=== PATIENT | female | born 1970 | race American Indian/Alaskan Native ===

== ENCOUNTER 2019-10-05 19:46 | Emergency (ER) | payer OTHER ==
[2019-10-05 20:14] VITALS: BP 153/107
--- NOTE | 2019-10-05 21:04 | Emergency Department Report ---
ED Chest Pain HPI - General Chief Complaint: Chest Pain Stated Complaint: SOB/CHEST PAIN/COUGH Time Seen by Provider: 10/05/19 20:53 Source: patient Mode of arrival: Ambulatory Limitations: No Limitations - History of Present Illness Initial Comments: Patient is 49 years old female with history of hypertension and diabetes. Patient presented to the ER complaining of right sided chest pain just above her right breast for the last 2 days. Patient describes the pain is sharp with no radiation. She stated that pain increases with coughing and changing position. Patient denied any shortness of breath. Patient stated that she had productive cough with greenish sputum. Patient is also complaining of sinus pain and pressure with congestion also. Patient denied any fever or chills. MD Complaint: chest pain - Related Data Previous Rx's Medication Instructions Recorded Last Taken Type AtorvaSTATin [Lipitor] 20 mg PO QDAY #30 tablet 01/13/18 Unknown Rx Glimepiride [Amaryl] 4 mg PO QDAY #60 tablet 01/13/18 Unknown Rx Ibuprofen 600 mg PO TID #21 tablet 01/13/18 Unknown Rx Losartan [Cozaar] 100 mg PO QDAY #30 tablet 01/13/18 Unknown Rx Sitagliptin Phos/Metformin HCl 1 tab PO QDAY #60 tbmp.24hr 01/13/18 Unknown Rx [Janumet XR 100-1,000 mg] carvediloL [Coreg] 3.125 mg PO BID #60 tablet 01/13/18 Unknown Rx hydroCHLOROthiazide [HCTZ] 12.5 mg PO QDAY #30 capsule 01/13/18 Unknown Rx Ketorolac [Toradol] 10 mg PO Q6H PRN #15 tablet 03/15/19 Unknown Rx Ketorolac [Toradol] 10 mg PO Q6H PRN #20 tablet 03/15/19 Unknown Rx methOCARBAMOL [Robaxin TAB] 750 mg PO Q8H PRN #14 tablet 03/15/19 Unknown Rx methOCARBAMOL [Robaxin TAB] 750 mg PO Q8H PRN #20 tablet 03/15/19 Unknown Rx Allergies Allergy/AdvReac Type Severity Reaction Status Date / Time lisinopril Allergy Angioedema Verified 01/11/18 14:34 Heart Score - HEART Score History: Slightly suspicious EKG: Normal Age: 45-65 Risk factors: 1-2 risk factors Troponin: < normal limit HEART Score: 2 - Critical Actions Critical Actions: 0-3 pts:0.9-1.7%risk of adverse cardiac event.Candidate for discharge ED Review of Systems ROS: Stated complaint: SOB/CHEST PAIN/COUGH Other details as noted in HPI Comment: All other systems reviewed and negative Constitutional: denies: chills, fever Respiratory: cough. denies: orthopnea, shortness of breath, SOB with exertion, SOB at rest, wheezing Cardiovascular: chest pain. denies: palpitations, dyspnea on exertion Gastrointestinal: denies: abdominal pain, nausea, vomiting, diarrhea, constipation, hematemesis, melena Musculoskeletal: denies: back pain Neurological: denies: headache, weakness, numbness, paresthesias, confusion ED Past Medical Hx - Past Medical History Previous Medical History?: Yes Hx Hypertension: Yes Hx Congestive Heart Failure: No Hx Diabetes: Yes Hx Kidney Stones: Yes Hx Asthma: No Hx COPD: No Hx HIV: No Additional medical history: hypelipidemia, Morbid Obesity - Surgical History Past Surgical History?: Yes Additional Surgical History: lithotripsy, ablation - Social History Smoking Status: Current Every Day Smoker Substance Use Type: None - Medications Home Medications: Home Medications Medication Instructions Recorded Confirmed Last Taken Type AtorvaSTATin [Lipitor] 20 mg PO QDAY #30 tablet 01/13/18 Unknown Rx Glimepiride [Amaryl] 4 mg PO QDAY #60 tablet 01/13/18 Unknown Rx Ibuprofen 600 mg PO TID #21 tablet 01/13/18 Unknown Rx Losartan [Cozaar] 100 mg PO QDAY #30 tablet 01/13/18 Unknown Rx Sitagliptin Phos/Metformin HCl 1 tab PO QDAY #60 tbmp.24hr 01/13/18 Unknown Rx [Janumet XR 100-1,000 mg] carvediloL [Coreg] 3.125 mg PO BID #60 tablet 01/13/18 Unknown Rx hydroCHLOROthiazide [HCTZ] 12.5 mg PO QDAY #30 capsule 01/13/18 Unknown Rx Ketorolac [Toradol] 10 mg PO Q6H PRN #15 tablet 03/15/19 Unknown Rx Ketorolac [Toradol] 10 mg PO Q6H PRN #20 tablet 03/15/19 Unknown Rx methOCARBAMOL [Robaxin TAB] 750 mg PO Q8H PRN #14 tablet 03/15/19 Unknown Rx methOCARBAMOL [Robaxin TAB] 750 mg PO Q8H PRN #20 tablet 03/15/19 Unknown Rx ED Physical Exam - General Limitations: No Limitations General appearance: alert, in no apparent distress - Head Head exam: Present: atraumatic, normocephalic, normal inspection - Eye Eye exam: Present: normal appearance, PERRL - ENT ENT exam: Present: normal exam, normal orophraynx, mucous membranes moist - Neck Neck exam: Present: normal inspection, full ROM. Absent: tenderness, meningismus, lymphadenopathy, thyromegaly - Respiratory Respiratory exam: Present: normal lung sounds bilaterally, chest wall tenderness. Absent: respiratory distress, wheezes, rales, rhonchi, accessory muscle use, decreased breath sounds, prolonged expiratory - Cardiovascular Cardiovascular Exam: Present: regular rate, normal rhythm, normal heart sounds - GI/Abdominal GI/Abdominal exam: Present: soft, normal bowel sounds. Absent: distended, tenderness, guarding, rebound, rigid, organomegaly, mass, bruit, pulsatile mass, hernia - Extremities Exam Extremities exam: Present: normal inspection, full ROM, normal capillary refill. Absent: pedal edema, calf tenderness - Back Exam Back exam: Present: normal inspection, full ROM. Absent: CVA tenderness (R), CVA tenderness (L), muscle spasm, paraspinal tenderness, vertebral tenderness - Neurological Exam Neurological exam: Present: alert, oriented X3, CN II-XII intact, normal gait, reflexes normal - Psychiatric Psychiatric exam: Present: normal mood - Skin Skin exam: Present: warm, intact, normal color ED Course Vital Signs 10/05/19 19:54 Temperature 99.0 F Pulse Rate 117 H Respiratory 16 Rate Blood Pressure 153/107 O2 Sat by Pulse 99 Oximetry FOZIA score - Fozia Score Age > 65: (0) No Aspirin use within the Past 7 Days: (0) No 3 or more CAD Risk Factors: (1) Yes 2 or more Angina events in past 24 hrs: (1) Yes Known CAD with more than 50% Stenosis: (0) No Elevated Cardiac Markers: (0) No ST Deviation Greater than 0.5mm: (0) No FOZIA Score: 2 ED Medical Decision Making - Lab Data Result diagrams: 10/05/19 21:41 10/05/19 21:41 - EKG Data -: EKG Interpreted by [place] EKG shows normal: sinus rhythm Rate: tachycardia - EKG Data Interpretation: no acute changes - Radiology Data Radiology results: report reviewed - Medical Decision Making Patient is 49 years old female with history of hypertension and diabetes. Patient presented to the ER complaining of right sided chest pain just above her right breast for the last 2 days. Patient describes the pain is sharp with no radiation. She stated that pain increases with coughing and changing position. Patient denied any shortness of breath. Patient stated that she had productive cough with greenish sputum. Patient is also complaining of sinus pain and pressure with congestion also. Patient denied any fever or chills. Patient labs reviewed and is unremarkable including a negative d-dimer. Chest x-ray is unremarkable. Patient's symptoms is consistent with costochondritis, patient with significant tenderness to the right chest. Patient given Toradol 60 IM and given a prescription for Naprosyn and advised to follow-up with her primary care physician in the next 2-3 days and to return to ER if symptoms are not improved. Critical care attestation.: If time is entered above; I have spent that time in minutes in the direct care of this critically ill patient, excluding procedure time. ED Disposition Clinical Impression: Chest pain, Costochondritis, acute, Acute bronchitis Disposition: - TO HOME OR SELFCARE Is pt being admited?: No Condition: Stable Instructions: Chest Pain (ED), Costochondritis (ED), Acute Bronchitis (ED) Referrals: JULIANNE MONREAL MD [Primary Care Provider] - 3-5 Days
[2019-10-05 22:15] LABS: Hematocrit 41.4 % (30.3-42.9); Hemoglobin 13.8 gm/dl (10.1-14.3); Mean Corpuscular HGB Conc 33 % (30-34); Mean Corpuscular Volume 86 fl (79-97); Platelet Count 260 K/mm3 (140-440); Red Blood Count 4.84 M/mm3 (3.65-5.03); Red Cell Distribution Width 13.7 % (13.2-15.2)
[2019-10-05 22:17] LABS: Alanine Aminotransferase 42 units/L (7-56); BUN/Creatinine Ratio 18; Blood Urea Nitrogen 11 mg/dL (7-17); Calcium 9.5 mg/dL (8.4-10.2); Hemolysis Index 6
--- NOTE | 2019-10-05 22:42 | XRay Report ---
CHEST 2 VIEWS INDICATION: cough. COMPARISON: 01/11/2018 FINDINGS: Support devices: None. Heart: Within normal limits. Lungs/pleura: No acute air space or interstitial disease. No pneumothorax. Additional findings: None. IMPRESSION: 1. No acute findings. Signer Name: Moise Claudio MD Signed: 10/05/2019 10:37 PM Workstation Name: [id number]
[2019-10-05 22:50] LABS: Basophils % (Manual) 0 % (0.0-1.8); RBC Morphology Normal; Total Cells Counted 100
== END 2019-10-05 23:24 | disposition home or self-care (01) ==
LOC: ED 19:46
DX: M94.0 Chondrocostal junction syndrome [Tietze] (principal); J20.9 Acute bronchitis, unspecified; I10 Essential (primary) hypertension; E11.9 Type 2 diabetes mellitus without complications; F17.200 Nicotine dependence, unspecified, uncomplicated; E66.01 Morbid (severe) obesity due to excess calories; Z68.42 Body mass index [BMI] 45.0-49.9, adult; Z88.6 Allergy status to analgesic agent
CPT/HCPCS: 36415; 71046; 80053; 85007; 85025; 85379; 93005; 93010